=== PATIENT | female | born 1955 | race Two or more races ===

== ENCOUNTER → 2019-12-08 | Outpatient (CLI) | payer MEDICARE, OTHER ==
[~2019-12-08] MED LIST: EFAV1TAB PO; GABA600T7 PO; PREG100C PO
== END | disposition home or self-care (01) ==
LOC: CFH 13:31
PROVIDERS: ATTEND Internal Medicine Cardiovascular Disease
DX: I25.10 Atherosclerotic heart disease of native coronary artery without angina pectoris (principal); R06.02 Shortness of breath; Z82.49 Family history of ischemic heart disease and other diseases of the circulatory system
CPT/HCPCS: 75571; 93306

== ENCOUNTER → 2020-04-13 | Outpatient (CLI) | payer MEDICARE, OTHER | END | disposition home or self-care (01) | LOC: CFH 12:29 | PROVIDERS: ATTEND Internal Medicine Cardiovascular Disease | DX: I25.10 Atherosclerotic heart disease of native coronary artery without angina pectoris (principal); I10 Essential (primary) hypertension | CPT/HCPCS: 78452; 93017; A9502 ==

== ENCOUNTER 2020-06-04 13:24 | Emergency (ER) | payer MEDICARE, OTHER ==
[~2020-06-04] VITALS: Ht 152.4 cm; Wt 55.6 kg
[2020-06-04 13:26] VITALS: BP 147/65
--- NOTE | 2020-06-04 13:54 | NUR ---
PT C/O RIGHT KNEE PAIN STATING SHE INJURED IT STEPPING DOWN FROM A ROCK WHILE HIKING. MD AT BEDSIDE EXAMING PT
--- NOTE | 2020-06-04 14:17 | NUR ---
Pt in xray currently
--- NOTE | 2020-06-04 14:24 | NUR ---
Pt back from xray, resting in bed, NADN.
== END 2020-06-04 15:10 | disposition home or self-care (01) ==
LOC: ED 14:06
DX: M25.561 Pain in right knee (principal)
CPT/HCPCS: 99283